=== PATIENT | female | born 1965 | race Caucasian/White ===

== ENCOUNTER 2022-07-06 11:09 | Emergency (ER) | payer OTHER ==
[2022-07-06 12:05] LABS: HEMOGLOBIN 14.7 gm/dl (12.3-15.3); RED BLOOD COUNT 4.58 M/UL (4.00-5.10); WHITE BLOOD COUNT 7.6 K/UL (4.5-11.0)
[2022-07-06 12:33] LABS: BUN/CREATININE RATIO 22 (0-10)
== END 2022-07-06 13:45 | disposition home or self-care (01) ==
LOC: ER1 11:09
PROVIDERS: Family Medicine
DX: R07.89 Other chest pain (principal); R10.10 Upper abdominal pain, unspecified; R10.12 Left upper quadrant pain; M54.6 Pain in thoracic spine; R10.814 Left lower quadrant abdominal tenderness; Z79.82 Long term (current) use of aspirin
CPT/HCPCS: 71045; 80053; 82550; 82553; 83690; 84484; 85025; 85610; 99285